=== PATIENT | female | born 2000 | race Hispanic/Latino ===

== ENCOUNTER 2021-02-10 08:56 | Emergency (ER) | payer SELFPAY ==
[2021-02-10] MEDS ORDERED: LIDOCAINE HCL 1% 20 ML VIAL ONE (09:50)
== END 2021-02-10 13:53 | disposition home or self-care (01) ==
LOC: EDH 08:56
DX: S81.812A Laceration without foreign body, left lower leg, initial encounter (principal); X58.XXXA Exposure to other specified factors, initial encounter; Y93.89 Activity, other specified; Y92.89 Other specified places as the place of occurrence of the external cause; Y99.8 Other external cause status
CPT/HCPCS: 12004